=== PATIENT | female | born 1965 | race Caucasian/White ===

== ENCOUNTER → 2020-06-28 | Outpatient (CLI) | payer OTHER ==
[~2020-06-28] MED LIST: CONTRAVE ER 8-1 EACH PO; VALACYCLOVIR500 MG PO
== END ==
LOC: LAB 12:01
PROVIDERS: ATTEND Specialist
DX: Z01.812 Encounter for preprocedural laboratory examination (principal); Z20.828 Contact with and (suspected) exposure to other viral communicable diseases

== ENCOUNTER → 2020-06-30 | Outpatient (CLI) | payer OTHER ==
[~2020-06-30] VITALS: Ht 167.6 cm; Wt 77.1 kg
--- NOTE | 2020-07-01 10:50 | P ---
[facility] [place] [address] PROCEDURE REPORT Name: MELBA JIMÉNEZ Room [facility]: [facility] [id number] Admission: 06/30/20 Attend Phys: Daniel Enriquez Discharge: Date of : 65 Report #: [id number] THIS REPORT FOR: cc: Virgilio Moralez MD, Neal A. MD McElhinney, Christian C. MD ~ DATE OF SERVICE: 06/30/2020 PROCEDURE PERFORMED: Colonoscopy with biopsies. HISTORY OF PRESENT ILLNESS: The patient is a 55-year-old female who presents today for routine screening colonoscopy. She denies any symptoms. No family history of colon cancer. She has had a previous hemorrhoidectomy years ago. DESCRIPTION OF PROCEDURE: The risks and benefits of the procedure were explained to the patient, those risks including but not limited to bleeding, perforation and the risk of sedation. She understood these risks and gave informed consent. Sedation was given using propofol per anesthesia. Next, a digital rectal exam was initially performed, which was normal. Next, using a standard Olympus colonoscope, the scope was placed in the patient's anus and advanced under direct vision to the cecum. The overall prep was good. The cecum and ileocecal valve were normal in appearance. The ascending colon was normal. In the transverse colon, a 4 mm sessile polyp was noted. This was removed with cold forceps, otherwise normal. Descending colon was normal. A few scattered diverticula noted in the sigmoid colon, otherwise normal. The rectal mucosa was normal. On retroflexion, a small internal hemorrhoid was noted. Scope was then withdrawn and the procedure terminated. The patient tolerated the procedure well. IMPRESSION: 1. Small colonic polyp. 2. Sigmoid diverticulosis. 3. Small internal hemorrhoids. 4. Otherwise, normal colonoscopy. RECOMMENDATIONS: 1. Await biopsy results. 2. If polyp is hyperplastic, repeat in 10 years; if adenomatous polyp, repeat in [address] [address] PROCEDURE REPORT Name: MELBA JIMÉNEZ [place] Room #: REG [facility]#: [id number] Admission: 06/30/20 Attend Phys: Daniel Enriquez Discharge: Date of : 65 Report #: [id number] Thank you for allowing me to participate in her care. <ELECTRONICALLY SIGNED> By: Daniel Riddle MD 07/01/20 1050 [id number] [id number] Daniel Riddle MD /nt
--- NOTE | 2020-07-04 16:06 | PATH ---
[facility] [address] [place] [address] PATHOLOGY RPT PROCEDURE Name: YAHAIRA JIMÉNEZ Room #: REG [facility].#: [id number] Admission: 06/30/20 Date of : 65 Discharge: Report #: [id number] Path Case #: [id number] [facility] Accession Number: [id number] . 01 Material submitted: . colon - TRANSVERSE COLON POLYLP. Modifiers: transverse . 01 Clinical history: . SCREENING-COLON CANCER, COLON POLYP, DIVERTICULOSIS . 02 Diagnosis: Polyp, transverse colon polyp, endoscopic biopsy: - Tubular adenoma. - Negative for high grade dysplasia. . (IUV:mml; 07/04/2020) QL 07/04/2020 1335 Local . 02 Electronically signed: . Indu Castle MD, Pathologist NPI- [id number] . 01 Gross description: . The specimen is received in formalin, labeled "Yahaira Jiménez, transverse colon polyp". Received are two segments of pale mendenhall soft tissue ranging in size from 0.3 to 0.6 cm in maximum dimensions. The specimen is submitted entirely in cassette A1. (CAA; 07/03/2020) QAC/QA 07/03/2020 1050 Local . 02 Pathologist provided ICD-10: D12.3 . 02 CPT . 163268 Specimen Comment: A courtesy copy of this report has been sent to [phone] Specimen Comment: [phone] Specimen Comment: Report sent to / DR BRAY Performed at: [address], [place] [id number] MD Rios Boyle MD Phone: [phone] Performed at: [address] [id number] MD Indu Castle MD Phone: [phone]
== END | disposition home or self-care (01) ==
LOC: GI 07:32
PROVIDERS: ATTEND Specialist
DX: Z12.11 Encounter for screening for malignant neoplasm of colon (principal); D12.3 Benign neoplasm of transverse colon; K57.30 Diverticulosis of large intestine without perforation or abscess without bleeding; K64.8 Other hemorrhoids; Z98.890 Other specified postprocedural states; Z79.899 Other long term (current) drug therapy
CPT/HCPCS: 62110; 62900

== ENCOUNTER → 2020-07-04 | Outpatient (CLI) | payer OTHER | LOC: CAT 10:05 | PROVIDERS: ATTEND Family Medicine | DX: Z13.6 Encounter for screening for cardiovascular disorders (principal); E78.00 Pure hypercholesterolemia, unspecified; I25.10 Atherosclerotic heart disease of native coronary artery without angina pectoris ==